=== PATIENT | male | born 1940 | race Caucasian/White ===

== ENCOUNTER 2020-05-27 09:08 | Day surgery (SDC) | payer OTHER ==
[~2020-05-27 09:08] MED LIST: INTESTINEX1 CA1 PO; OXYC1TAB9 PO; PROTONIX40 MG PO
== END 2020-05-27 14:10 | disposition home or self-care (01) ==
LOC: AMB-ENDOS 09:08
PROVIDERS: ATTEND Surgery
DX: D12.3 Benign neoplasm of transverse colon (principal); K64.8 Other hemorrhoids